=== PATIENT | male | born 1960 | race Caucasian/White ===

== ENCOUNTER 2019-09-07 12:22 | Emergency (ER) | payer BC, OTHER ==
[~2019-09-07] VITALS: Ht 175.3 cm; Wt 99.8 kg
[2019-09-07 12:33] VITALS: BP 153/84
--- NOTE | 2019-09-07 12:47 | NUR ---
ED Nurse Note: Patient presents to ED due to right side rib pain for 1 week; increased pain with deep breathing. Regular, unlabored breathing noted. Ingalls lip with moist mucous membrane noted. Addendum: 09/07/19 at 1336 by JERMAN ED Nurse Note: Patient states he fell about 1 week ago,tripped and "fell onto the ground" forward, reports no head injury. No bruise or rash noted on the affected area.
--- NOTE | 2019-09-07 13:30 | Emergency Room Report ---
History of Present Illness General Chief Complaint: Pain Source: Patient Present Illness HPI 38-year-old male presents to the emergency department complaining of 8 out of 10 severity pain in the right lower rib area status post mechanical fall 1 week ago. Patient reports he landed on the right side of his ribs. He states his symptoms have not improved and he feels a slight popping sensation in 1 of his bones at the very beginning of each inspiration. Patient reports pain with breathing. Patient reports past medical history of complex regional pain syndrome and is prescribed Percocet for which provides minimal relief for him. Patient denies hemoptysis. Denies hx of lung disease. Reports he is a daily smoker. He denies bruising, abdominal pain or tenderness. Patient denies midline neck or back pain. He denies hitting his head or having a loss of consciousness. No other aggravating or relieving factors at this time. Allergies: Coded Allergies: No Known Allergies (Verified Allergy, Unknown, 01/31/10) Patient History Past Medical History: see triage record Past Surgical History: none Pertinent Family History: none Reviewed Nursing Documentation: PMH: Agreed; PSxH: Agreed Nursing Documentation-PMH Past Medical History: No Stated History Review of Systems All Other Systems: negative except mentioned in HPI Physical Exam Vital Signs Date Time Temp Pulse Resp B/P (MAP) Pulse Ox O2 Delivery O2 Flow Rate FiO2 09/07/19 12:33 97.5 61 15 153/84 (107) 95 Room Air Sp02 EP Interpretation: reviewed, normal General Appearance: no apparent distress, alert, GCS 15, non-toxic Head: normocephalic, atraumatic Eyes: bilateral eye normal inspection, bilateral eye PERRL ENT: hearing grossly normal, normal voice Neck: full range of motion Respiratory: lungs clear, normal breath sounds, speaking full sentences, other - TTP anteriolateral right lower ribs, pop ascultated at the begining of each inspiration. No flail chest. Cardiovascular #1: regular rate, rhythm, no edema Gastrointestinal: non tender, soft Musculoskeletal: back normal, normal range of motion, gait/station normal, non- tender Neurologic: alert, motor strength/tone normal, oriented x3, sensory intact, responsive, speech normal Psychiatric: judgement/insight normal Skin: no rash Medical Decision Making PA Attestation Dr. Alvarez is my supervising Physician whom patient management has been discussed with. Diagnostic Impression: Primary Impression: Incidental lung nodule, greater than or equal to 8mm ER Course 38-year-old male presents to the emergency department complaining of 8 out of 10 severity pain in the right lower rib area status post mechanical fall 1 week ago. Patient reports he landed on the right side of his ribs. He states his symptoms have not improved and he feels a slight popping sensation in 1 of his bones at the very beginning of each inspiration. Patient reports pain with breathing. Patient reports past medical history of complex regional pain syndrome and is prescribed Percocet for which provides minimal relief for him. Patient denies hemoptysis. Denies hx of lung disease. Reports he is a daily smoker. He denies bruising, abdominal pain or tenderness. Patient denies midline neck or back pain. He denies hitting his head or having a loss of consciousness. No other aggravating or relieving factors at this time. Ddx considered but are not limited to Fracture, dislocation, contusion, Sprain/ Strain/Spasm, spontaneous pneumothorax, rib fractures, rib cage contusion, lung contusion just to name a few. Vital signs: are WNL, pt. is afebrile H&PE are most consistent with musculoskeletal injury will perform imaging to r/ o fractures/dislocations. ORDERS: - CT Chest Non Contrasted: 8mm Right lower lboe lung nodule, no fractures ED INTERVENTIONS: - D/W pt. and his significant other who is bedside regarding the urgent need to have further work up of 8mm right lower lobe lung nodule as an outpatient. he is instructed to call his PCP office tomorrow am to advise his PCP of the CT findings and to begin initiation for proper referrals to security technician and oncologist to definitively rule in or out cancer given pt. smoking hx. DISCHARGE: At this time pt. is stable for d/c to home. Will provide printed patient care instructions, and any necessary prescriptions. Care plan and follow up instructions have been discussed with the patient prior to discharge. CT/MRI/US Diagnostic Results CT/MRI/US Diagnostic Results : Imaging Test Ordered: - CT Chest Non Contrasted: Impression " 8mm lung nodule in the right lower lobe, no fractures or effusions " Per official radiology report- Please see report for specific details. Last Vital Signs Date Time Temp Pulse Resp B/P (MAP) Pulse Ox O2 Delivery O2 Flow Rate FiO2 09/07/19 12:33 97.5 61 15 153/84 (368) 95 Room Air Status: improved Disposition: HOME, SELF-CARE Condition: Stable Patient Instructions: Pulmonary Nodule Additional Instructions: It is imperative that you contact your primary care provider within the next 48 hours to let them know that an 8 mm nodule was found on CT scan today in the ER. This will require urgent pulmonology and possible oncology specialty evaluation to determine if this mass is cancerous. Continue to take previously prescribed medications as directed. Follow up with a Primary Care Provider in 3-5 days, even if your symptoms have resolved. Return sooner to ED if new symptoms occur, or current symptoms become worse. - Please note that this Emergency Department Report was dictated using [employer] t[employer] technology software, occasionally this can lead to erroneous entry secondary to interpretation by the dictation equipment. Rona Morejon Sep 07, 2019 13:30
--- NOTE | 2019-09-07 14:10 | Diagnostic Imaging Report ---
Indication: Chest pain Technique: Continuous helical transaxial imaging of the chest was obtained from the thoracic inlet to the upper abdomen. No intravenous contrast was administered. Coronal 2-D reformats were also obtained. Total Dose length Product (DLP): 1037.[address] Dose Index Volume (CTDIvol): 20.20 mGy Comparison: none Findings: There is a noncalcified nodule demonstrated within the superior segment of the right lower lobe (image #36/3). The lungs are clear otherwise. No consolidation identified. There is minimal posterior basal atelectasis. No adenopathy seen. Tiny nodes seen in mediastinum nonspecific. The heart is unremarkable. No pleural effusion seen. The visualized part of the upper abdomen is unremarkable. IMPRESSION: 8 mm nodule in the right lower lobe. Follow-up CT is recommended per Fleischner Society criteria. For high risk patient (smoking etc.), recommend initial follow-up at 3-6 months and for low risk patient at 6-[address] scanner at [facility] is accredited by the [employer] and the scans are performed using dose optimization techniques as appropriate to a performed exam including Automatic Exposure control.
--- NOTE | 2019-09-07 15:28 | NUR ---
ED Nurse Note: Pt cleared by health care Provider for discharge. DC instructions/prescription was given and explained to pt and verbalized understanding of teachings. All medical deviecs such as ID band removed. Pt is AAO x4, ambulatory and left with all personal belongings.
[2019-09-07 15:30] VITALS: BP 153/84
== END 2019-09-07 15:28 | disposition home or self-care (01) ==
LOC: EMR 13:30
DX: R91.1 Solitary pulmonary nodule (principal)
CPT/HCPCS: 71250; 99284

== ENCOUNTER 2020-10-21 06:42 | Emergency (ER) | payer BC ==
[~2020-10-21] VITALS: Ht 170.2 cm; Wt 113.4 kg
[2020-10-21 07:16] VITALS: BP 131/80
--- NOTE | 2020-10-21 07:17 | NUR ---
CAME TO ER COMPLAINTS OF SORETHROAT X 2 DAYS NO FEVER CHILLS WAITING FOR MD TAYLOR
[2020-10-21] MEDS ORDERED: TYLENOL325 MG ORAL (07:20)
--- NOTE | 2020-10-21 07:20 | Emergency Room Report ---
History of Present Illness General Chief Complaint: Sore Throat Source: Patient Present Illness HPI 59-year-old male with recurrent sore throat, sore throat started yesterday, he feels an achy pain when swallowing, severity is mild, intermittent alleviated by not swallowing no fevers no chills patient does endorse an absence of a cough patient presents for evaluation treatment Allergies: Coded Allergies: No Known Allergies (Verified Allergy, Unknown, 01/31/10) COVID-19 Screening Contact w/high risk pt: No Experienced COVID-19 symptoms?: No COVID-19 Testing performed HAND SPRING FORMER: No Patient History Past Medical History: see triage record Social History: Reports: smoking Reviewed Nursing Documentation: PMH: Agreed; PSxH: Agreed Nursing Documentation-PMH Hx Hypertension: Yes Review of Systems All Other Systems: negative except mentioned in HPI Physical Exam Vital Signs Date Time Temp Pulse Resp B/P (MAP) Pulse Ox O2 Delivery O2 Flow Rate FiO2 10/21/20 07:11 98.8 88 18 131/80 (97) 98 Room Air General Appearance: well appearing, no apparent distress Head: normocephalic, atraumatic Eyes: bilateral eye PERRL, bilateral eye EOMI ENT: hearing grossly normal, normal voice, moist mucus membranes, pharyngeal erythema, tonsillar exudate Neck: full range of motion, supple Respiratory: no respiratory distress, speaking full sentences Musculoskeletal: no calf tenderness Neurologic: alert, normal gait Psychiatric: mood/affect normal Skin: no rash Medical Decision Making Diagnostic Impression: Primary Impression: Sore throat Additional Impression: Strep pharyngitis ER Course 59-year-old male presents with sore throat, tonsillar exudates noted, most likely recurrent strep throat will treat patient with Bicillin, will treat patient with Decadron, Toradol Patient discharged with return precautions, anticipatory guidance given, Last Vital Signs Date Time Temp Pulse Resp B/P (MAP) Pulse Ox O2 Delivery O2 Flow Rate FiO2 10/21/20 07:16 98.8 18 131/80 98 Room Air 10/21/20 07:11 88 Disposition: HOME, SELF-CARE Condition: Stable Scripts Acetaminophen (Tylenol) 325 Mg Tablet 650 MG ORAL Q6H PRN for Prn Pain/Headache/Temp > 101, #30 TAB 0 Refills Prov: Luis Ledesma MD 10/21/20 Referrals: [id number],REFERRING (PCP) [facility] Niels Griggs. [facility] Patient Instructions: Strep Throat Additional Instructions: The patient was provided with discharge instructions, notified to follow-up with a primary care doctor and or specialist in the next 24-48 hours, and to return to the ED if they have worsening of their symptoms. Please note that this report is being documented using [employer] technology. This can lead to erroneous entry secondary to incorrect interpretation by the dictating instrument. Luis Ledesma MD Oct 21, 2020 07:20
[2020-10-21] MEDS: Bicillin LA 1.2MMU/2ML SYR IM ONE (07:24)
[2020-10-21] MEDS: Ketorolac 30mg Inj IM ONE (07:26)
[2020-10-21] MEDS ORDERED: dexAMETHasone 10mg/ml Inj IV ONE (07:30)
[2020-10-21] MEDS ORDERED: dexAMETHasone 10mg/ml Inj PF*Surgery use IM ONE (07:30)
--- NOTE | 2020-10-21 07:41 | NUR ---
meds given as orderd
--- NOTE | 2020-10-21 07:42 | NUR ---
patient left fromer before giving the discharge paper verbal instruction given by
[2020-10-21 07:44] VITALS: BP 131/80
== END 2020-10-21 07:47 | disposition home or self-care (01) ==
LOC: EMR 06:54
DX: J02.0 Streptococcal pharyngitis (principal); I10 Essential (primary) hypertension; F17.200 Nicotine dependence, unspecified, uncomplicated
CPT/HCPCS: 96372; 99283; J0570; J1100; J1885; J0561